=== PATIENT | male | born 1970 | race Caucasian/White ===

== ENCOUNTER → 2021-01-25 | Outpatient (CLI) | payer BC ==
--- NOTE | 2021-01-25 13:01 | Diagnostic Imaging Report ---
INDICATION: Covid patient with cough. FINDINGS: There are patchy bilateral infiltrates with pulmonary density greatest in the periphery of the left midlung. The findings are nonspecific but congruent with the provided history of Covid pneumonia. There is no associated pleural fluid. There is no pneumothorax. There is no failure pattern. IMPRESSION: 1. There are bilateral infiltrates consistent with multifocal bilateral pneumonia and compatible with the provided history of Covid. 2. No pleural pathology or failure pattern. 3. The report was faxed to Infection Control by [email or web address]. Dictated by: Dictated on workstation # [id number]
== END ==
LOC: RAD FS 11:39
PROVIDERS: ATTEND Nurse Practitioner
DX: U07.1 COVID-19 (principal)
CPT/HCPCS: 71046